=== PATIENT | female | born 1940 | race Caucasian/White ===

== ENCOUNTER 2021-02-06 15:49 | Emergency (ER) | payer OTHER, MEDICARE ==
[2021-02-06] MEDS ORDERED: ACETAMINOPHEN 500 MG TABLET (FP) PO ONE (16:59)
[2021-02-06] MEDS ORDERED: SODIUM CHLORIDE 0.9% 500 ML INFUS.BAG IV ONE (16:59)
[2021-02-06 17:03] VITALS: BMI 26.2
[2021-02-06 17:33] LABS: EOS % 0.2 % (0-4.5); HEMATOCRIT 37.9 % (32.4-45.2); HEMOGLOBIN 13.1 GM/dL (10.7-15.3); LYMPH % 10.7 % (8-40); MCH 30.9 pg (25.7-33.7); MCHC 34.5 g/dl (32.0-36.0); MEAN CELL VOLUME 89.5 fl (80-96); MEAN PLT VOLUME 8.1 fl (7.5-11.1); MONO % 9.3 % (3.8-10.2); NEUT % 78.8 % (42.8-82.8); PLATELET COUNT 154 10^3/uL (134-434); RBC 4.23 M/mm3 (3.60-5.2); RDW 13.9 % (11.6-15.6); WHITE BLOOD COUNT 4.5 K/mm3 (4.0-10.0)
[2021-02-06 17:54] LABS: CHLORIDE 103 mmol/L (98-107); SODIUM 135 mmol/L (136-145)
[2021-02-06 17:57] LABS: ALBUMIN 4.1 g/dl (3.4-5.0); ANION GAP 6 MMOL/L (8-16); BLOOD UREA NITROGEN 14.9 mg/dL (7-18); CALCIUM 8.6 mg/dL (8.5-10.1); CO2 27 mmol/L (21-32)
[2021-02-06 17:59] LABS: GLUCOSE,RANDOM 114 mg/dL (74-106)
[2021-02-06 18:00] LABS: PHOSPHOROUS 3.8 mg/dL (2.5-4.9); SGOT/AST 15 U/L (15-37); SGPT/ALT 15 U/L (13-61)
[2021-02-06 18:03] LABS: ALK PHOS 144 U/L (45-117); BILIRUBIN,TOTAL 0.5 mg/dL (0.2-1); TOT PROT 6.9 g/dl (6.4-8.2)
[2021-02-06] MEDS ORDERED: ACETAMINOPHEN 325 MG TABLET (FP) ONE (19:07)
[2021-02-06] MEDS ORDERED: AMOX TR/POT CLAV 875MG/125MG TABLETS (FP) PO ONE (19:48)
[2021-02-06] MEDS ORDERED: AZITHROMYCIN 250 MG TABLET PO ONE (19:49)
[2021-02-06 19:50] LABS: MAGNESIUM 2.1 mg/dL (1.8-2.4)
[2021-02-06] MEDS ORDERED: AZITHROMYCIN 500 MG TABLET ONE (19:54)
[2021-02-06] MEDS ORDERED: AMOX TR/POT CLAV 875MG/125MG TABLETS (FP) ONE (19:54)
[2021-02-06 20:00] LABS: EPI CELLS 5 /uL (0-25.1); HYALINE CASTS 1 /uL (0-3.1); URINE APPEARANCE CLEAR; URINE BACTERIA 7 /uL (0-1359); URINE BILIRUBIN NEGATIVE (NEGATIVE); URINE COLOR YELLOW; URINE GLUCOSE (UA) NEGATIVE (NEGATIVE); URINE KETONE NEGATIVE (NEGATIVE); URINE LEUK ESTERASE NEGATIVE (NEGATIVE); URINE NITRITE NEGATIVE (NEGATIVE); URINE PROTEIN NEGATIVE (NEGATIVE); URINE RBC 23 /uL (0-23.9); URINE UROBILINOGEN 0.2 mg/dL (0.2-1.0); URINE WBC 13 /uL (0-25.8)
[2021-02-06 22:15] VITALS: TEMP 98.6
[2021-02-07 05:16] VITALS: BP 123/70; PULSE 78
== END 2021-02-07 06:04 ==
LOC: JER 15:49
DX: J18.9 Pneumonia, unspecified organism (principal)
CPT/HCPCS: 36415; 70450-TC; 71045-TC-FY; 72125-TC; 80053; 81003; 82550; 82962; 83735; 84100; 84484; 85025; 87086; 87186; 93005; 93010; 99285-25

== ENCOUNTER 2021-05-14 17:29 | Emergency (ER) | payer MEDICARE, OTHER ==
[2021-05-14 17:59] VITALS: TEMP 98.1; BMI 25.7
[2021-05-14] MEDS ORDERED: SODIUM CHLORIDE 1,000 ML IV STA (18:17)
[2021-05-14] MEDS ORDERED: METOCLOPRAMIDE HCL INJECTION 10 MG/2 ML VIAL IVPB ONE (18:28)
[2021-05-14] MEDS ORDERED: METOCLOPRAMIDE HCL INJECTION 10 MG/2 ML VIAL ONE (18:37)
[2021-05-14 18:45] LABS: BASO % 0.2 % (0-2.0); EOS % 0.1 % (0-4.5); HEMATOCRIT 37.3 % (32.4-45.2); HEMOGLOBIN 12.7 GM/dL (10.7-15.3); LYMPH % 23.3 % (8-40); MCH 30.2 pg (25.7-33.7); MCHC 34.1 g/dl (32.0-36.0); MEAN CELL VOLUME 88.4 fl (80-96); MEAN PLT VOLUME 7.7 fl (7.5-11.1); MONO % 9.4 % (3.8-10.2); PLATELET COUNT 229 10^3/uL (134-434); RBC 4.22 M/mm3 (3.60-5.2); RDW 13.9 % (11.6-15.6); WHITE BLOOD COUNT 6.6 K/mm3 (4.0-10.0)
[2021-05-14] MEDS ORDERED: ACETAMINOPHEN 1000 MG/100 ML BAG IVPB ONE (18:50)
[2021-05-14] MEDS ORDERED: ACETAMINOPHEN INJECTION 100 ML IVPB ONE (18:56)
[2021-05-14 19:07] LABS: CALCIUM 9.4 mg/dL (8.5-10.1)
[2021-05-14 19:08] LABS: BLOOD UREA NITROGEN 11.9 mg/dL (7-18)
[2021-05-14 19:12] LABS: BILIRUBIN,TOTAL 0.4 mg/dL (0.2-1); CREATININE 0.7 mg/dL (0.55-1.3)
[2021-05-14 19:13] LABS: TOT PROT 6.8 g/dl (6.4-8.2)
[2021-05-14] MEDS ORDERED: PROCHLORPERAZINE INJECTION 10 MG/2 ML VIAL IVPB ONE ×2 (19:33→19:50)
[2021-05-15 03:54] VITALS: BP 155/76; PULSE 88
== END 2021-05-15 03:29 | disposition home or self-care (01) ==
LOC: JER 17:29
PROC: 3E0333Z Introduction of Anti-inflammatory into Peripheral Vein, Percutaneous Approach (ICD-10-PCS; principal; 2021-05-14)
PROC: 3E033GC Introduction of Other Therapeutic Substance into Peripheral Vein, Percutaneous Approach (ICD-10-PCS; 2021-05-14)
PROC: 3E033GC Introduction of Other Therapeutic Substance into Peripheral Vein, Percutaneous Approach (ICD-10-PCS; 2021-05-14)
PROC: 3E0337Z Introduction of Electrolytic and Water Balance Substance into Peripheral Vein, Percutaneous Approach (ICD-10-PCS; 2021-05-14)
DX: R11.0 Nausea (principal)
CPT/HCPCS: 36415; 80053; 85025; 93005; 93010; 99284-25